=== PATIENT | male | born 2000 | race Caucasian/White ===

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

== ENCOUNTER 2022-02-24 12:39 | Emergency (ER) | payer BC | END 2022-02-24 13:38 | disposition home or self-care (01) | LOC: FB.ED 12:39 | DX: S61.511A Laceration without foreign body of right wrist, initial encounter (principal); W17.89XA Other fall from one level to another, initial encounter | CPT/HCPCS: 12001; 99282 ==